=== PATIENT | male | born 1950 | race Caucasian/White ===

== ENCOUNTER 2017-11-06 15:19 | Emergency (ER) | payer MEDICARE, OTHER ==
[~2017-11-06] VITALS: Ht 180.3 cm; Wt 74.8 kg
[2017-11-06] MEDS ORDERED: ALTACE10 MG PO (15:43)
[2017-11-06] MEDS ORDERED: ELIQUIS5 MG PO (15:43)
[2017-11-06] MEDS ORDERED: LIPITOR 20 MG T20 M1 PO (15:43)
[2017-11-06] MEDS ORDERED: METOPROLOL SUCC50 MG PO (15:43)
[2017-11-06] MEDS ORDERED: FLONASE SENSIM9.9 ML NASAL (15:44)
[2017-11-06] MEDS ORDERED: CARDIZEM CD240 MG PO (15:44)
[2017-11-06 16:59] VITALS: BP 145/82
== END 2017-11-06 16:59 | disposition home or self-care (01) ==
LOC: M.ERS 15:19
DX: S61.214A Laceration without foreign body of right ring finger without damage to nail, initial encounter (principal); I10 Essential (primary) hypertension; I48.91 Unspecified atrial fibrillation; E78.00 Pure hypercholesterolemia, unspecified; W25.XXXA Contact with sharp glass, initial encounter; Y93.89 Activity, other specified; Y92.89 Other specified places as the place of occurrence of the external cause; Y99.8 Other external cause status